=== PATIENT | male | born 1930 | race Caucasian/White ===

== ENCOUNTER → 2017-07-28 | Outpatient (CLI) | payer OTHER, BC ==
[~2017-07-28] VITALS: Ht 180.3 cm; Wt 97.5 kg
[~2017-07-28] MED LIST: ADULT LOW DOSE81 MG PO; ASPIR 8181 MG PO; AUGMENTIN 875875 MG PO; CENTRUM SILVER1 EAC2 PO; COUMADIN6 MG; CULTURELLE1 EACH PO; FISHOIL PO; HYDROCODON-ACE1 EAC8; LAMISIL250 MG PO; METAMUCIL1 EAC1 PO; MULTIVITAMINS PO; PROTONIX40 M2 PO; TYLOPHEN500 MG PO; VITAMIN D32000 UNI1 PO
--- NOTE | ~2017-07-28 | P ---
[facility] [place], [place] [address] PROCEDURE REPORT Name: AYAH ROSE Room #: REG [facility]#: [id number] Admission: 07/28/17 Attend Phys: Oracio Villa MD Discharge: Date of : [birth year] Report #: [id number] THIS REPORT FOR: //name// CC: Oracio Reza Box BRIEF HISTORY: The patient is an 86-year-old male with complaints of increased stool frequency, diarrhea as well as periods of fecal incontinence. PREOPERATIVE DIAGNOSIS: Modification of bowel habits. POSTOPERATIVE DIAGNOSIS: A 5 mm sessile polyp at 50 cm. MEDICATIONS: Deep sedation with propofol per Anesthesia. SPECIMEN: 1. Random biopsies of proximal colon, rule out colitis. 2. Random biopsies of distal colon, rule out colitis. 3. Polyp at 50 cm. ESTIMATED BLOOD LOSS: 3 mL. PROCEDURE: Colonoscopy to cecum and terminal ileum with snare polypectomy and biopsy. FINDINGS: Prior to propofol sedation, procedure of colonoscopy discussed with the patient as well as potential risks and its complications. He indicates he understands and desires to proceed. DESCRIPTION OF PROCEDURE: With the patient in left lateral decubitus position, digital examination was completed. The patient was sedated and anal sphincter tone was fair. No mass lesions were palpable. Subsequently, the [employer] video colonoscope was introduced into the rectum, advanced under direct vision to the cecum. This was done with minimal difficulty. The cecum was identified by the ileocecal valve and the appendiceal orifice. I was able to visualize the distal segment of the terminal ileum, which was inspected and noted to be unremarkable. At that point, the scope was withdrawn and careful circumferential views were obtained. Upon slow withdrawal of the scope, the prep was excellent. Mucosa within normal limits, normal vascular pattern, normal light reflex. As we withdrew the scope, no inflammatory changes were seen. There is no endoscopic evidence of colitis. As we withdrew the scope, random biopsies were taken of the colon, the proximal colon as well as the distal colon to evaluate for microscopic colitis. In addition, at 50 cm, a 5 mm sessile polyp was seen and removed by cold snare polypectomy. Scope was further withdrawn and no additional abnormalities were seen. Scope was withdrawn in the rectum. Upon retroflexion, no abnormalities were seen. Scope was withdrawn. The patient [address] [address] PROCEDURE REPORT Name: AYAH ROSE Room #: REG [facility]#: [id number] Admission: 07/28/17 Attend Phys: Oracio Villa MD Discharge: Date of : [birth year] Report #: [id number] tolerated the procedure well. CONDITION OF THE PATIENT UPON DISCHARGE: Following procedure, the patient was drowsy and will be discharged home when fully ambulatory. INSTRUCTIONS TO THE PATIENT AND FAMILY AT THE TIME OF DISCHARGE: I do not see inflammatory changes. He did have one polyp as described. We will follow up on the path and random biopsies as well as a polyp. At this point in life, there is likely to be no significant benefit from routine surveillance colonoscopy regarding his colon polyp. As far as his diarrhea and fecal incontinence, we will follow up on biopsies and make further recommendations. At this point, we will add Colestid 2 tablets twice daily. If he does not have improvement, especially with soiling in stool habits, consider a glycerin suppository in the morning to initiate defecation. Another consideration would be colorectal evaluation and possibly biofeedback for fecal incontinence. We will have him return for followup in the office in about a month or so. <ELECTRONICALLY SIGNED> By: Oracio Villa MD 07/31/17 1712 [id number] Oracio Villa MD /nt
--- NOTE | ~2017-07-28 | S ---
[facility] [address] [place] [address] SURGICAL PATH RPT PROCEDURE Name: AYAH ROSE Room #: REG [facility]#: [id number] Admission: 07/28/17 Date of : [birth year] Discharge: Report #: [id number] Path Case #: [id number] PATHOLOGY REPORT DRAFT COLLECTION DATE: 07/28/2017 RECEIVED DATE: 07/28/2017 SPECIMEN(S) RECEIVED: A.Random bx proximal colon B.Bx distal colon and rectum C.Polyp at 50 cm
== END ==
LOC: GI 07:30
DX: K63.5 Polyp of colon (principal); K21.9 Gastro-esophageal reflux disease without esophagitis; M19.90 Unspecified osteoarthritis, unspecified site; Z87.19 Personal history of other diseases of the digestive system; Z96.652 Presence of left artificial knee joint; Z98.41 Cataract extraction status, right eye; Z79.82 Long term (current) use of aspirin; Z87.891 Personal history of nicotine dependence; Z85.828 Personal history of other malignant neoplasm of skin; Z79.899 Other long term (current) drug therapy; Z98.890 Other specified postprocedural states
CPT/HCPCS: 62110; 62900

== ENCOUNTER 2017-09-22 10:23 | Emergency (ER) | payer OTHER, BC ==
[~2017-09-22] VITALS: Ht 180.3 cm; Wt 97.5 kg
[2017-09-22] MEDS ORDERED: CHOLESTYRAMINE P4 GM PO (10:34)
[2017-09-22 10:48] LABS: URINE BILIRUBIN NEGATIVE (Negative); URINE BLOOD TRACE (Negative); URINE CLARITY CLEAR; URINE COLOR YELLOW; URINE GLUCOSE-RANDOM* NEGATIVE (Negative); URINE KETONES NEGATIVE (Negative); URINE LEUKOCYTES-REFLEX NEGATIVE (Negative); URINE NITRITE-REFLEX NEGATIVE (Negative); URINE PROTEIN (DIPSTICK) NEGATIVE (Negative); URINE UROBILINOGEN 0.2 E.U./dl (0.2-1.0)
[2017-09-22 10:55] LABS: ABSOLUTE NEUTROPHILS 7.1 thou/uL (1.4-8.2); BASOPHILS 0.4 % (0.0-2.0); EOSINOPHILS 1.1 % (0.0-3.0); HEMATOCRIT 42.9 % (42.0-52.0); HEMOGLOBIN 14.8 gm/dL (14.0-18.0); LYMPHOCYTES 14.3 % (24.0-44.0); MCH 32.8 pg (26.0-34.0); MCHC 34.5 g/dL (28.0-37.0); MCV 95.2 fL (80.0-100.0); MONOCYTES 6.5 % (1.0-8.0); PLATELET COUNT 177 thou/uL (150-400); POLYS 77.7 % (36.0-66.0); RDW 12.9 % (10.5-14.5); WBC 9.1 thou/uL (4.0-11.0)
[2017-09-22 11:01] LABS: CREATININE 1.4 mg/dL (0.7-1.3); POTASSIUM 4.3 mmol/L (3.5-5.1)
[2017-09-22 11:07] LABS: ALBUMIN 3.8 g/dL (3.4-5.0); TOTAL BILIRUBIN 0.4 mg/dL (<0.1-1.0); TOTAL PROTEIN 7.2 g/dL (6.4-8.2)
[2017-09-22] MEDS ORDERED: HYDROCODONE-AP1 EAC6 PO (14:03)
[2017-09-22 14:17] VITALS: BP 163/71
== END 2017-09-22 14:18 | disposition home or self-care (01) ==
LOC: ER 10:23
PROVIDERS: Physician Assistant
DX: K46.9 Unspecified abdominal hernia without obstruction or gangrene (principal); K21.9 Gastro-esophageal reflux disease without esophagitis; M19.90 Unspecified osteoarthritis, unspecified site; Z96.653 Presence of artificial knee joint, bilateral; Z87.891 Personal history of nicotine dependence